=== PATIENT | female | born 1980 | race Caucasian/White ===

== ENCOUNTER 2018-08-06 20:02 | Emergency (ER) | payer MEDICAID ==
[~2018-08-06] VITALS: Ht 165.1 cm; Wt 65.8 kg
[~2018-08-06 20:02] MED LIST: BACITRACIN15 GM TOPIC; BACTRIM DS TAB1 EAC1 ORAL; NORCO 5-325 TA1 EAC1 ORAL
[2018-08-06] MEDS ORDERED: NKM (20:18)
[2018-08-06 20:20] VITALS: BP 114/57
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
[2018-08-06 21:30] VITALS: BP 114/57
[2018-08-06] MEDS ORDERED: IBUPROFEN600 MG ORAL (21:30)
--- NOTE | 2018-08-06 21:30 | NUR ---
ER DISCHARGE NOTE: Patient is cleared to be discharged per ERMD, pt is aox4, on room air, with stable vital signs. accompanied by family member. pt was given dc and prescription instructions, pt was able to verbalize understanding, pt id band removed. pt is able to ambulate with steady gait. pt took all belongings.
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
--- NOTE | 2018-08-07 13:13 | Diagnostic Imaging Report ---
Indication: Pain status post injury Technique: XRAY C Spine 2-3v Comparison: None Findings: Bone mineralization within normal limits. No radiographically appreciable acute cervical spine fractures identified. There is straightening of the cervical lordosis without evidence to suggest spondylolisthesis. Mild degenerative changes of the cervical spine noted with displaced narrowing at C5-C6. Anterior and lateral atlantodental intervals are within normal limits. No evidence of dens fracture on open mouth view. No prevertebral soft tissue thickening is identified. Airway is patent. Imaged lung apices are clear. No radiopaque foreign body. Impression: Nonspecific straightening of the cervical lordosis. Mild degenerative changes most pronounced at C5-C6. No radiographically appreciable acute cervical spine fracture.
== END 2018-08-06 21:30 | disposition home or self-care (01) ==
LOC: EMR 20:41
DX: S16.1XXA Strain of muscle, fascia and tendon at neck level, initial encounter (principal); V43.52XA Car driver injured in collision with other type car in traffic accident, initial encounter; Y92.410 Unspecified street and highway as the place of occurrence of the external cause; J45.909 Unspecified asthma, uncomplicated
CPT/HCPCS: 72040; 99283